=== PATIENT | female | born 1935 | race Caucasian/White ===

== ENCOUNTER 2020-08-28 06:36 | Emergency (ER) | payer OTHER ==
[2020-08-28 08:31] LABS: BASOPHIL 0.3 % (0-2); EOSINOPHIL 0.1 % (0-7); HCT 36.7 % (37.0-47.0); HGB 11.9 g/dl (12.5-16.0); LYMPHOCYTE 6.8 % (15-48); MCH 30.6 pg (25.0-31.0); MCHC 32.4 g/dL (32.0-36.0); MCV 94.3 fL (78.0-100.0); MONOCYTE 9.6 % (0-12); MPV 11.2 fL (6.0-9.5); NEUTROPHIL 82.9 % (41-80); NRBC 0; PLT 162 K/uL (150-400); RBC 3.89 M/uL (4.20-5.40); RDW 13.8 % (11.5-14.0); WBC 8.7 K/uL (4.0-10.5)
[2020-08-28 08:41] LABS: INR 1.11 (0.9-1.2); PROTHROMBIN TIME 13.6 SECONDS (11.4-13.6)
[2020-08-28 08:54] LABS: ALBUMIN 3.3 g/dL (3.4-5.0); BILIRUBIN - TOTAL 0.7 mg/dL (0.2-1.0); BUN/CREAT RATIO (CALC) 24.3 RATIO; CREATININE 1.07 mg/dL (0.51-0.95); GLOBULIN (CALCULATION) 2.9 g/dL; POTASSIUM 3.7 mmol/L (3.5-5.1); TOTAL PROTEIN 6.2 g/dL (6.4-8.2)
== END 2020-08-28 14:10 | disposition other institution (70) ==
LOC: FER 06:36
PROVIDERS: Emergency Medicine
DX: S42.022A Displaced fracture of shaft of left clavicle, initial encounter for closed fracture (principal); S20.212A Contusion of left front wall of thorax, initial encounter; M54.2 Cervicalgia; I10 Essential (primary) hypertension; W10.9XXA Fall (on) (from) unspecified stairs and steps, initial encounter; Y92.009 Unspecified place in unspecified non-institutional (private) residence as the place of occurrence of the external cause; Z20.822 Contact with and (suspected) exposure to COVID-19
CPT/HCPCS: 36415; 71250; 72125; 73030; 73060; 80053; 85025; 85610; J2270; J2405; U0002